=== PATIENT | female | born 1985 | race Caucasian/White ===

== ENCOUNTER 2019-09-25 09:09 | Emergency (ER) | payer SELFPAY ==
--- NOTE | 2019-09-25 10:13 | ER ---
Nurse's Notes [facility] Name: Anna Dalton Age: 34 yrs Sex: Female : 1985 Arrival Date: 09/25/2019 Time: 09:12 Bed 11 Private MD: Diagnosis: Streptococcal pharyngitis Presentation: 09/25 09:30 Presenting complaint: Patient states: sore throat X 3day, +body aches, fever. iw Transition of care: patient was not received from another setting of care. Onset of symptoms was September 22, 2019. Risk Assessment: Do you want to hurt yourself or someone else? Patient reports no desire to harm self or others. Initial Sepsis Screen: Does the patient meet any 2 criteria? No. Patient's initial sepsis screen is negative. Does the patient have a suspected source of infection? No. Patient's initial sepsis screen is negative. Care prior to arrival: None. 09:30 Method Of Arrival: Ambulatory iw 09:30 Acuity: AMBER 4 iw Triage Assessment: 09:50 General: Appears in no apparent distress. Behavior is calm. 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 - Social history:: Smoking status: Patient/guardian denies using tobacco. - Ebola Screening: : Patient negative for fever greater than or equal to 101.5 degrees Fahrenheit, and additional compatible Ebola Virus Disease symptoms Patient denies exposure to infectious person Patient denies travel to an Ebola-affected area in the 21 days before illness onset No symptoms or risks identified at this time. Screenin:50 Abuse screen: Denies threats or abuse. Denies injuries from another. Nutritional iw screening: No deficits noted. Tuberculosis screening: No symptoms or risk factors identified. Fall Risk None identified. Assessment: 09:50 General: Appears in no apparent distress. Behavior is calm, cooperative. General: iw Reports fever for feeling ill for fatigue for. Pain: Complains of pain in throat. Neuro: Level of Consciousness is awake, alert, obeys commands, Oriented to person, place, time, situation, Moves all extremities. Full function. Cardiovascular: Patient's skin is warm and dry. Respiratory: Airway is patent Respiratory effort is even, unlabored, Breath sounds are clear. EENT: Throat is reddened has enlarged tonsils bilaterally with gag reflex present. Derm: Skin is intact, is healthy with good turgor. Musculoskeletal: Range of motion: intact in all extremities. Vital Signs: 09:32 BP 107 / 80; Pulse 77; Resp 16; Temp 98.3; Pulse Ox 98% on R/A; Weight 58.97 kg; Height iw 5 ft. 2 in. (157.48 cm); Pain 9/10; 09:32 Body Mass Index 23.78 (58.97 kg, 157.48 cm) iw ED Course: 09:12 Patient arrived in ED. am2 09:30 Triage completed. iw 09:32 Arm band placed on. iw 09:50 Patient has correct armband on for positive identification. iw 10:03 Lanie Rodgers, RN is Primary Nurse. iw 10:06 Abdirashid Cristobal PA is PHCP. cp 10:06 Abdirashid Sky MD is Attending Physician. cp 10:55 No provider procedures requiring assistance completed. Patient did not have IV access iw during this emergency room visit. Administered Medications: No medications were administered Outcome: 10:12 Discharge ordered by MD. cp 10:20 Discharged to home ambulatory, with family. iw 10:20 Condition: good 10:20 Discharge instructions given to patient, Instructed on discharge instructions, follow up and referral plans. medication usage, Demonstrated understanding of instructions, follow-up care, wound care, Prescriptions given X 1. 10:22 Patient left the ED. iw Signatures: Lanie Rodgers RN RN iw Abdirashid Cristobal PA PA Carmen Johnston am2
--- NOTE | 2019-09-25 10:13 | EDPHYS ---
Physician Documentation [facility] Name: Anna Dalton Age: 34 yrs Sex: Female : 1985 Arrival Date: 09/25/2019 Time: 09:12 Bed 11 Private MD: ED Physician Abdirashid Sky HPI: 09/25 10:08 This 34 yrs old Female presents to ER via Ambulatory with complaints of Sore cp Throat, bodyache, chills. 10:08 The patient presents with sore throat. The patient describes throat pain as constant. cp Onset: The symptoms/episode began/occurred 3 day(s) ago. Severity of symptoms: in the emergency department the symptoms are unchanged, despite home interventions. Modifying factors: the symptoms are aggravated by swallowing. Associated signs and symptoms: Pertinent positives: chills, body aches, Pertinent negatives cough, diarrhea, fever, vomiting. 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 - Social history:: Smoking status: Patient/guardian denies using tobacco. - Ebola Screening: : Patient negative for fever greater than or equal to 101.5 degrees Fahrenheit, and additional compatible Ebola Virus Disease symptoms Patient denies exposure to infectious person Patient denies travel to an Ebola-affected area in the 21 days before illness onset No symptoms or risks identified at this time. ROS: 10:09 Constitutional: Positive for body aches, chills, Negative for fever, poor PO intake. cp 10:09 Eyes: Negative for injury, pain, redness, and discharge. cp 10:09 ENT: Positive for sore throat, Negative for drainage from ear(s), ear pain, difficulty swallowing, difficulty handling secretions. 10:09 Neck: Negative for stiffness. 10:09 Respiratory: Negative for cough, wheezing. 10:09 Abdomen/GI: Negative for abdominal pain, nausea, vomiting, and diarrhea. 10:09 Neuro: Negative for altered mental status, headache. 10:09 All other systems are negative. Exam: 10:11 Constitutional: The patient appears in no acute distress, alert, awake, non-toxic, well cp developed, well nourished. 10:11 Head/Face: Normocephalic, atraumatic. cp 10:11 Eyes: Periorbital structures: appear normal, Conjunctiva: normal, no exudate, no injection, Lids and lashes: appear normal, bilaterally. 10:11 ENT: External ear(s): are unremarkable, Ear canal(s): are normal, clear, TM's: dullness, bilaterally, Nose: is normal, Mouth: Lips: moist, Oral mucosa: moist, Posterior pharynx: Airway: no evidence of obstruction, patent, Tonsils: no enlargement, no exudate, Uvula: midline, erythema, that is mild. 10:11 Neck: ROM/movement: Meningeal signs: are not present, nuchal rigidity, is not appreciated. 10:11 Chest/axilla: Inspection: normal. 10:11 Cardiovascular: Rate: normal. 10:11 Respiratory: the patient does not display signs of respiratory distress, Respirations: normal, no use of accessory muscles, no retractions, no splinting, no tachypnea, labored breathing, is not present. Vital Signs: 09:32 BP 107 / 80; Pulse 77; Resp 16; Temp 98.3; Pulse Ox 98% on R/A; Weight 58.97 kg; Height iw 5 ft. 2 in. (157.48 cm); Pain 9/10; 09:32 Body Mass Index 23.78 (58.97 kg, 157.48 cm) iw MDM: 10:07 Patient medically screened. cp 10:10 Differential diagnosis: group A strep tonsillitis, influenza, mononucleosis, cp pharyngitis, retropharyngeal abcess tonsillitis. 10:11 Data reviewed: vital signs, nurses notes, lab test result(s). cp 10:11 Counseling: I had a detailed discussion with the patient and/or guardian regarding: the cp historical points, exam findings, and any diagnostic results supporting the discharge/admit diagnosis, lab results, to return to the emergency department if symptoms worsen or persist or if there are any questions or concerns that arise at home. 09/25 09:32 Order name: Strep; Complete Time: 10:07 Administered Medications: No medications were administered Disposition: 09/26 07:53 Co-signature as Attending Physician, Abdirashid Sky MD I agree with the assessment and [facility] plan of care. Disposition: 09/25/19 10:12 Discharged to Home. Impression: Streptococcal pharyngitis. - Condition is Stable. - Discharge Instructions: Strep Throat. - Prescriptions for Cephalexin 500 mg Oral Capsule - take 1 capsule by ORAL route every 8 hours for 10 days; 30 capsule. - Medication Reconciliation Form, Thank You Letter, Antibiotic Education, Prescription Opioid Use, Work release form form. - Follow up: Private Physician; When: 2 - 3 days; Reason: Worsening of condition. - Problem is new. - Symptoms are unchanged. 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 Impression: Streptococcal pharyngitis. iw Condition is Stable. Forms are Medication Reconciliation Form, Thank You Letter, Antibiotic Education, Prescription Opioid Use. Follow up: Private Physician; When: 2 - 3 days; Reason: Worsening of condition. Problem is new. Symptoms are unchanged. cp
[2019-09-25 10:34] VITALS: BP 107/80; TEMP 98.3; O2SAT 98
== END 2019-09-25 10:22 | disposition home or self-care (01) ==
LOC: ER 09:09
DX: J02.0 Streptococcal pharyngitis (principal); Z88.0 Allergy status to penicillin; Z88.5 Allergy status to narcotic agent
CPT/HCPCS: 87081; 99282